=== PATIENT | male | born 1990 | race Caucasian/White ===

== ENCOUNTER 2020-02-01 08:09 | Emergency (ER) | payer OTHER ==
[~2020-02-01] VITALS: Ht 182.9 cm; Wt 72.3 kg
[2020-02-01 08:11] VITALS: BP 102/67
--- NOTE | 2020-02-01 08:26 | NUR ---
NOT IN LOBBY X 1
--- NOTE | 2020-02-01 08:52 | NUR ---
FIRST CONTACT WITH PT. PT C/O CYST ON C[facility] OF PELVIC [facility], STARTED 3 DAYS AGO. STATED HAS BEEN GROWING IN SIZE SINCE AND IS PAINFUL. PT'S AOX4. RESPS EVEN AND UNLABORED.
[2020-02-01] MEDS ORDERED: HYDROmorphone 1 MG/ML, 1ML INJ IM ONE (09:00)
[2020-02-01] MEDS ORDERED: HYDROmorphone 1 MG/ML, 1ML INJ ONE (09:00)
--- NOTE | 2020-02-01 09:05 | NUR ---
PT MEDICATED PER EMAR. PT TOLERATED WELL.
--- NOTE | 2020-02-01 10:34 | NUR ---
PT LEFT WITHOUT DC PAPER AND PERSCRIPTION. THIS RN GAVE DC PAPER AND PERSCRIPTION TO ETL DATA ARCHITECT.
== END 2020-02-01 10:35 | disposition home or self-care (01) ==
LOC: ED 09:10
DX: L02.211 Cutaneous abscess of abdominal wall (principal)
CPT/HCPCS: 10060; 96372; 99283; J1170

== ENCOUNTER 2020-08-05 06:55 | Emergency (ER) | payer MEDICAID ==
[~2020-08-05] VITALS: Ht 182.9 cm; Wt 83.5 kg
[2020-08-05 06:58] VITALS: BP 122/73
--- NOTE | 2020-08-05 07:15 | NUR ---
patient arrives with needing an inhaler, he is asthmatic and ran out. he also needs c19 swab to get into a rehab program, and he needs to be assessed for depresson.
--- NOTE | 2020-08-05 07:45 | NUR ---
report to ryan that patient was assigned to her not myself, that I had completed all of triage/assesment except [place] scale.
--- NOTE | 2020-08-05 07:57 | NUR ---
DPatient/Caregiver given discharge instructions and they have confirmed that they understand the instructions. Patient ambulatory with steady gait.
== END 2020-08-05 07:59 | disposition home or self-care (01) ==
LOC: ED 07:50
DX: Z00.00 Encounter for general adult medical examination without abnormal findings (principal); Z76.0 Encounter for issue of repeat prescription; Z20.822 Contact with and (suspected) exposure to COVID-19; F17.210 Nicotine dependence, cigarettes, uncomplicated
CPT/HCPCS: 87635; 99406